=== PATIENT | female | born 1960 | race Caucasian/White ===

== ENCOUNTER 2016-09-09 09:25 | Day surgery (SDC) | payer OTHER ==
[~2016-09-09] VITALS: Ht 165.1 cm; Wt 63.5 kg
[~2016-09-09 09:25] MED LIST: 0.9% Sodium Chloride 1,000 ML IV PRN; CAL1TABL2 PO; PSEU30SY2 PO; RANI75TA21 PO; Sodium Chloride LOK Flush 10 mL Syringe IV PRN; ZOLP5TAB6 PO; fentaNYL-PF 50 mCg/mL 2 mL Inj IVPUSH PRN
[2016-09-09 10:35] VITALS: BP 110/72; PULSE 62; RESP 14; O2SAT 100
--- NOTE | 2016-09-09 11:26 | PCM.ENDEGD ---
EGD Date of Service: Sep 09, 2016 Physician Hilario Menjivar MD Pre Procedure Diagnosis: Reflux Post Procedure Dx & Findings: Carr's esophagus nonobstructing Schatzki's ring fundic polyps Procedure Esophagogastroduodenoscopy PROCEDURE IN DETAIL: After proper sedation, Olympus video endoscope was inserted into patient's mouth and esophagus was successfully intubated. Scope introduced esophagus. Esophagus showed normal shiny whitish mucosa consistent with squamous cell component. Z line was irregular at 40 cm from the incisors. There was couple tongues of salmon-colored mucosa on the nonobstructing Schatzki's ring. The length was less than 2 cm. 4 quadrant biopsies obtained . No ulcer mass erosion nodule noted. We also obtained biopsies at the Schatzki's ring and placed in the same bottle. Scope advanced to the stomach. In the fundus, there are multiple fundic polyps largest was about 8-10 mm in size. Most of these were all 3 mm or less. Sampling biopsies were done. Otherwise the stomach showed normal shiny mucosa with normal appearing rugae folds without any ulcer mass erosion. Cardia fundus body antrum pylorus were all visualized. Retroflexion was done. Stomach was easily inflated and deflatable using air. Scope further events to the distal duodenum. Duodenum revealed normal villous structures with normal appearing folds without any mass ulcer erosion. Impression Nonobstructing Schatzki's ring status post biopsy Carr's esophagus less than 2 cm status post biopsy with the same bottle as Schatzki's ring. Await biopsies to confirm Fundic polyps Status post sampling biopsies Recommendation Stop Zantac and start Prilosec 20 once a day Ultrasound 6 months for liver cyst Follow-up in 6 month in GI clinic Presedation Assessment Risks and Benefits Informed consent was obtained from the patient after all risks and benefits including but not limited to drug reaction, infection, pain, bleeding, perforation, as well as alternatives were discussed. Patient monitoring Continuous pulse oximetry, cardiac monitoring, blood pressure monitoring, IV access, and oxygen at 2L per nasal cannula. Periprocedural Fentanyl: Fentanyl 75mcg Incrementally Midazolam: Midazolam 5mg Incrementally Complications There were no periprocedural complications identified. Post Procedure Plan Post Procedure Recommendations 1. Restrict activities today. 2. Resume normal activities in the morning. 3. Resume medications. 4. GERD behavioral modification: - Avoid fatty, acidic, spicy, large meals - Do not lie down after meals - Do not eat or drink anything for at least 2 1/2 hours before going to bed at night - Discontinue tobacco and alcohol - Decrease or avoid caffeine - Avoid chocolate and mints - Decrease weight - Avoid aspirin and non steroidal anti-inflammatory agents (NSAID) such as Aleve, Advil, Mobic, Naproxen, Ibuprofen, etc 5. Add proton pump inhibitor. Take 30 minutes before 1st meal of the day. 6. Patient informed of normal post procedure side effects as bloating, drowsiness, blood streaking in the stool 7. If gastric biopsy reveal H.pylori, continue with appropriate treatment 8. If small bowel biopsy reveals celiac, continue with appropriate treatment 9. Please don't hesitate to call me with any questions Hilario Menjivar MD Sep 09, 2016 11:26
[2016-09-09 11:32] VITALS: BP 92/62; PULSE 63; RESP 16; O2SAT 96
[2016-09-09 11:34] VITALS: BP 100/40; PULSE 67; RESP 16; O2SAT 100
[2016-09-09 11:56] VITALS: BP 92/50; PULSE 72; RESP 16; O2SAT 100
--- NOTE | 2016-09-10 14:10 | PATH ---
SURGICAL PATHOLOGY Attending Physician:Hilario Menjivar M.D. CASE STATUS: Signed Out PATIENT NAME: MALIHA LALA PID: [id number] : 1960 DATE COLLECTED:09/09/2016 22:00 SPECIMEN: 1: Stomach, Polyp, Biopsy 2: Esophagus, Biopsy CLINICAL HISTORY: 1). GASTRIC POLYP BIOPSY 2). GASTRO-ESOPHAGEAL JUNCTION BIOPSY FINAL DIAGNOSIS: 1.GASTRIC POLYP BIOPSY: FUNDIC GLAND POLYP. Negative for intestinal metaplasia. Negative for dysplasia and malignancy. 2.GASTROESOPHAGEAL JUNCTION BIOPSY: SQUAMOCOLUMNAR MUCOSA WITH MILD INFLAMMATORY CHANGES. Negative for intestinal/Carr' s metaplasia. Negative for dysplasia and malignancy. ICD10 code K31.7 K20.9 GROSS DESCRIPTION: The specimen is received in two formalin filled containers labeled with the patient's name. 1). The specimen is sublabeled "gastric polyps" and consists of 3 tiny portions of tissue which aggregate to 3 x 0.3 x 0.2 CM. The specimen is entirely submitted in cassette 1A. 2). The specimen is sublabeled "GEJ" and consists of 2 portions of tissue which aggregate to 0.3 x 0.3 x 0.3 CM. The specimen is entirely submitted in cassette 2A. 09/09/2016 [facility] MICRO DESCRIPTION: See diagnosis. ICD-9 CODES: CPT CODES: 1: 19525 2: 63578 Electronically Signed Out Cari Fisher MD [facility], [place] [address] Technical component performed at [facility], [address] [place] [address] Ave[address], [place], [address]
== END 2016-09-09 23:59 | disposition home or self-care (01) ==
LOC: END 09:25
PROVIDERS: ATTEND Internal Medicine
DX: K22.2 Esophageal obstruction (principal); K22.70 Barrett's esophagus without dysplasia; K31.7 Polyp of stomach and duodenum; K21.0 Gastro-esophageal reflux disease with esophagitis; F32.9 Major depressive disorder, single episode, unspecified; E78.5 Hyperlipidemia, unspecified
CPT/HCPCS: 43239; 99153; J7030